=== PATIENT | female | born 2000 | race Caucasian/White ===

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

== ENCOUNTER 2021-02-01 16:22 | Emergency (ER) | payer OTHER ==
[~2021-02-01] VITALS: Ht 160 cm; Wt 61.2 kg
[2021-02-01 16:32] VITALS: BP 121/72
[2021-02-01] MEDS ORDERED: ACETAMINOPHEN ES 500 MG TABLET ONE (17:00)
[2021-02-01] MEDS ORDERED: ACETAMINOPHEN 325 MG TABLET PO ONE (17:00)
[2021-02-01] MEDS ORDERED: IBUP-1955 PO (17:14)
[2021-02-01] MEDS ORDERED: CYCL5TAB PO (17:14)
== END 2021-02-01 17:48 | disposition home or self-care (01) ==
LOC: ER 16:28
DX: M25.512 Pain in left shoulder (principal); M79.622 Pain in left upper arm; Z79.899 Other long term (current) drug therapy; V49.49XA Driver injured in collision with other motor vehicles in traffic accident, initial encounter; Y93.89 Activity, other specified; Y92.413 State road as the place of occurrence of the external cause; Y99.8 Other external cause status
CPT/HCPCS: 73030-TC; 73060-TC

== ENCOUNTER 2021-03-22 00:47 | Emergency (ER) | payer OTHER ==
[~2021-03-22] VITALS: Ht 160 cm; Wt 54.4 kg
[~2021-03-22 00:47] MED LIST: CYCL5TAB PO; IBUP-1955 PO
--- NOTE | 2021-03-22 00:56 | NUR ---
PT AAOX4. BIBRA FROM HOME STATED SHE FEELS WEAK S/P SYNCOPE IN SHOWER, DENIES PAIN. COVID+ SINCE 8 DAYS AGO. 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 AWAITING ER MD FOR EVAL.
[2021-03-22] MEDS: IV NS 0.9% 1,000 ML BAG IV ONE (01:00)
[2021-03-22 01:05] LABS: BASOPHILS % (AUTO) 0.4 % (0.0-2.0); EOSINOPHILS % (AUTO) 8.9 % (0.0-6.0); HEMATOCRIT 39 % (33-45); HEMOGLOBIN 13.3 g/dL (11.5-14.8); LYMPHOCYTES # (AUTO) 2.7 K/uL (0.8-4.8); LYMPHOCYTES % (AUTO) 61.8 % (20.0-44.0); MEAN CORPUSCULAR HGB CONC 34 g/dl (31.0-36.0); MEAN CORPUSCULAR VOLUME 89 fL (82-100); MONOCYTES # (AUTO) 0.4 K/uL (0.1-1.30); MONOCYTES % (AUTO) 8.7 % (2.0-12.0); NEUTROPHILS # (AUTO) 0.9 K/uL (1.8-8.9); NEUTROPHILS % (AUTO) 20.2 % (43.0-81.0); PLATELET COUNT (AUTO) 176 K/uL (150-450); RED BLOOD CELL COUNT(AUTO) 4.37 MIL/uL (4.0-5.2); WHITE BLOOD COUNT (AUTO) 4.4 K/uL (4.3-11.0)
[2021-03-22 01:17] LABS: CALCIUM, SERUM 8.4 mg/dL (8.5-10.1); CARBON DIOXIDE 26 mmol/L (21-32); CHLORIDE 104 mmol/L (98-107); CREATININE 0.8 mg/dL (0.6-1.3); GLUCOSE 100 mg/dL (74-106); POTASSIUM 3.7 mmol/L (3.5-5.1); SODIUM SERUM 139 mmol/L (136-145); UREA NITROGEN, BLOOD 19 mg/dL (7-18)
[2021-03-22 01:23] LABS: ALANINE AMINOTRANSFERASE 207 U/L (12-78); ALBUMIN 3.8 g/dL (3.4-5.0); ALKALINE PHOSPHATASE 62 U/L (46-116); ASPARTATE AMINOTRANSFERASE 137 U/L (15-37); BILIRUBIN,TOTAL 0.1 mg/dL (0.2-1.0); TOTAL PROTEIN, SERUM 7.5 g/dL (6.4-8.2)
[2021-03-22] MEDS ORDERED: ONDANSETRON HCL/PF 4 MG/2 ML VIAL ONE (01:58)
[2021-03-22] MEDS: ONDANSETRON HCL/PF 4 MG/2 ML VIAL IV ONE (02:07)
--- NOTE | 2021-03-22 02:08 | NUR ---
IV removed. Catheter intact and site benign. Pressure and 4x4 applied to site. No bleeding noted.
--- NOTE | 2021-03-22 02:08 | NUR ---
Patient discharged to home in stable condition. Written and verbal after care instructions given. Patient verbalizes understanding of instruction and rx. VSS. Ambulated out of ED.
[2021-03-22 02:11] VITALS: BP 113/72
== END 2021-03-22 02:12 | disposition home or self-care (01) ==
LOC: ER 00:48
DX: R55 Syncope and collapse (principal)
CPT/HCPCS: 36415; 71045; 80048; 80076; 84484; 85025; 93005; 96361; 96374; 99285; J2405; J7030

== ENCOUNTER 2024-01-16 13:11 | Emergency (ER) | payer OTHER ==
[~2024-01-16] VITALS: Ht 160 cm; Wt 56.7 kg
[2024-01-16 14:03] LABS: BASOPHILS % (AUTO) 0.5 % (0.0-2.0); EOSINOPHILS # (AUTO) 0.1 K/uL (0.0-0.7); EOSINOPHILS % (AUTO) 0.7 % (0.0-6.0); HEMATOCRIT 40 % (33-45); HEMOGLOBIN 13.4 g/dL (11.5-14.8); LYMPHOCYTES # (AUTO) 1.1 K/uL (0.8-4.8); LYMPHOCYTES % (AUTO) 13.5 % (20.0-44.0); MEAN CORPUSCULAR HEMOGLOBIN 30 PG (26.0-33.0); MEAN CORPUSCULAR HGB CONC 34 g/dl (31.0-36.0); MEAN CORPUSCULAR VOLUME 89 fL (82-100); MONOCYTES # (AUTO) 0.8 K/uL (0.1-1.30); MONOCYTES % (AUTO) 10.2 % (2.0-12.0); NEUTROPHILS # (AUTO) 5.9 K/uL (1.8-8.9); NEUTROPHILS % (AUTO) 75.1 % (43.0-81.0); PLATELET COUNT (AUTO) 267 K/uL (150-450); RED BLOOD CELL COUNT(AUTO) 4.47 MIL/uL (4.0-5.2); RED CELL DISTRIBUTION WIDTH 12.6 % (11.5-15.0); WHITE BLOOD COUNT (AUTO) 7.9 K/uL (4.3-11.0)
[2024-01-16 14:14] LABS: INR 1.08 (0.91-1.10); PARTIAL THROMBOPLASTIN TIME 31.6 SEC (24.3-34.3); PROTHROMBIN TIME 11.4 SECS (9.2-11.1)
[2024-01-16] MEDS: IV NS 0.9% 1,000 ML BAG IV ONE (14:18)
[2024-01-16] MEDS ORDERED: CEFTRIAXONE 1GM BAG (ER ONLY) 50 ML IV ONE (14:19)
[2024-01-16 14:21] LABS: ALANINE AMINOTRANSFERASE 34 U/L (12-78); ALBUMIN 4.1 g/dL (3.4-5.0); ALKALINE PHOSPHATASE 87 U/L (46-116); ASPARTATE AMINOTRANSFERASE 14 U/L (15-37); BILIRUBIN,DIRECT 0.2 mg/dL (0.0-0.2); BILIRUBIN,TOTAL 0.6 mg/dL (0.2-1.0); CARBON DIOXIDE 28 mmol/L (21-32); CHLORIDE 101 mmol/L (98-107); GLUCOSE 106 mg/dL (74-106); POTASSIUM 4.1 mmol/L (3.5-5.1); SODIUM SERUM 137 mmol/L (136-145); TOTAL PROTEIN, SERUM 8.7 g/dL (6.4-8.2); UREA NITROGEN, BLOOD 10 mg/dL (7-18)
[2024-01-16] MEDS: CEFTRIAXONE 1GM BAG (ER ONLY) 50 ML IV ONE (14:24)
[2024-01-16 14:36] LABS: LACTIC ACID 1.4 mmol/L (0.4-2.0)
[2024-01-16 15:17] LABS: APPEARANCE,URINE Slightly Cloudy (CLEAR); BILIRUBIN,URINE Negative (NEGATIVE); BLOOD, URINE Trace-intact Ery/uL (NEGATIVE); COLOR,URINE YELLOW (YELLOW); KETONES,URINE Negative (NEGATIVE); LEUKOCYTE ESTERASE ,URINE Small (NEGATIVE); NITRITE, URINE Negative (NEGATIVE); PROTEIN,URINE Negative (NEGATIVE); UGLUCOSE Negative (NEGATIVE); UROBILINOGEN,URINE 0.2 EU/dL (0.2)
[2024-01-16] MEDS ORDERED: KETOROLAC TROMETHAMINE 15 MG/ML VIAL ONE (15:28)
[2024-01-16] MEDS ORDERED: ACETAMINOPHEN 325 MG TABLET ONE (15:28)
[2024-01-16] MEDS: KETOROLAC TROMETHAMINE 15 MG/ML VIAL IV ONE (15:29)
[2024-01-16] MEDS: ACETAMINOPHEN 325 MG TABLET PO ONE (15:30)
[2024-01-16 15:33] LABS: WBC,URINE 21-50 /HPF (0-3)
[2024-01-16 15:34] LABS: ADD URINE CULTURE YES; BACTERIA,URINE Many /HPF (None Seen); SQUAMOUS EPITHELIAL CELL,UR Few /HPF (None Seen)
[2024-01-16] MEDS ORDERED: IBUP-1955 PO (16:14)
[2024-01-16] MEDS ORDERED: CEFD300C3 PO (16:14)
[2024-01-16 16:30] VITALS: BP 112/63; TEMP 100.3; O2SAT 98
== END 2024-01-16 16:33 | disposition home or self-care (01) ==
LOC: ER 13:15
DX: N39.0 Urinary tract infection, site not specified (principal); R50.9 Fever, unspecified; R00.0 Tachycardia, unspecified
CPT/HCPCS: 99285; 96365; 71045; 96366; 96375; 93005; 84145; 85025; 80048; 87040 ×2; 87086; 83605; 80076; 81001; 36415; 84484; 85730; J7030; J0696; J1885

== ENCOUNTER 2024-04-26 13:47 | Emergency (ER) | payer OTHER ==
[~2024-04-26] VITALS: Ht 160 cm; Wt 56.7 kg
[~2024-04-26 13:47] MED LIST changes: +CEFD300C3 PO
[2024-04-26 14:55] LABS: APPEARANCE,URINE CLEAR (CLEAR); BILIRUBIN,URINE NEGATIVE (NEGATIVE); BLOOD, URINE NEGATIVE Ery/uL (NEGATIVE); KETONES,URINE NEGATIVE (NEGATIVE); LEUKOCYTE ESTERASE ,URINE 1+ (NEGATIVE); NITRITE, URINE NEGATIVE (NEGATIVE); PREGNANCY TEST URINE QUAL NEGATIVE (NEGATIVE); PROTEIN,URINE NEGATIVE (NEGATIVE); UGLUCOSE NEGATIVE (NEGATIVE); UROBILINOGEN,URINE 0.2 EU/dL (0.2)
[2024-04-26 15:07] LABS: COLOR,URINE STRAW (YELLOW)
[2024-04-26 15:09] LABS: ADD URINE CULTURE YES; BACTERIA,URINE 1+ /HPF (None Seen); RBC,URINE 0-2 /HPF (0-2); SQUAMOUS EPITHELIAL CELL,UR 0-2 /HPF (None Seen)
[2024-04-26] MEDS ORDERED: CEPH500C2 PO (15:42)
[2024-04-26 16:00] VITALS: BP 101/63; TEMP 98.1; O2SAT 97
== END 2024-04-26 16:00 | disposition home or self-care (01) ==
LOC: ER 13:52
DX: N39.0 Urinary tract infection, site not specified (principal); R10.2 Pelvic and perineal pain; Z79.1 Long term (current) use of non-steroidal anti-inflammatories (NSAID); Z79.899 Other long term (current) drug therapy
CPT/HCPCS: 81001; 84703-TC

== ENCOUNTER 2024-05-30 11:47 | Emergency (ER) | payer OTHER ==
[~2024-05-30] VITALS: Ht 160 cm; Wt 59.0 kg
[~2024-05-30 11:47] MED LIST changes: +CEPH500C2 PO
[2024-05-30 11:58] VITALS: BP 117/68; TEMP 99.2; O2SAT 100
[2024-05-30] MEDS ORDERED: NEO/5DRO3 EACHEYE (12:17)
== END 2024-05-30 12:22 | disposition home or self-care (01) ==
LOC: ER 11:47
DX: H20.9 Unspecified iridocyclitis (principal)

== ENCOUNTER 2024-06-28 16:09 | Emergency (ER) | payer OTHER ==
[~2024-06-28] VITALS: Ht 160 cm; Wt 56.7 kg
[~2024-06-28 16:09] MED LIST changes: +NEO/5DRO3 EACHEYE
[2024-06-28 16:10] VITALS: BP 120/70; TEMP 98.4
[2024-06-28] MEDS: dexAMETHasone 1 MG TABLET PO ONE ×2 (16:52→16:57)
[2024-06-28 16:57] VITALS: O2SAT 99
== END 2024-06-28 16:58 | disposition home or self-care (01) ==
LOC: ER 16:12
DX: S91.032A Puncture wound without foreign body, left ankle, initial encounter (principal); S91.031A Puncture wound without foreign body, right ankle, initial encounter; Z79.899 Other long term (current) drug therapy; W57.XXXA Bitten or stung by nonvenomous insect and other nonvenomous arthropods, initial encounter; Y93.89 Activity, other specified; Y92.89 Other specified places as the place of occurrence of the external cause; Y99.8 Other external cause status
CPT/HCPCS: 99283; J8540

== ENCOUNTER 2024-12-09 14:21 | Emergency (ER) | payer OTHER ==
[~2024-12-09] VITALS: Ht 157.5 cm; Wt 59.0 kg
[2024-12-09 14:52] VITALS: BP 110/74; TEMP 98.1; O2SAT 99
== END 2024-12-09 18:38 | disposition home or self-care (01) ==
LOC: ER 14:33
DX: M54.6 Pain in thoracic spine (principal); R20.0 Anesthesia of skin; R10.2 Pelvic and perineal pain; Z79.899 Other long term (current) drug therapy
CPT/HCPCS: 36415; 72128-TC; 84702-TC